=== PATIENT | male | born 1995 | race African-American/Black ===

== ENCOUNTER 2017-01-18 04:43 | Inpatient (IN) | payer MEDICAID, OTHER, SELFPAY ==
[~2017-01-18] VITALS: Ht 177.8 cm; Wt 67.1 kg
[2017-01-18 06:20] LABS: MEAN CORPUSCULAR HEMOGLOBIN 30.1 pg (27.0-33.0); MEAN CORPUSCULAR HGB CONC 34.3 g/dl (32.0-36.5); MEAN CORPUSCULAR VOLUME 87.6 fl (80.0-96.0); RED CELL DISTRIBUTION WIDTH 13.1 % (11.5-14.5); WHITE BLOOD COUNT 7.8 K/mm3 (4.0-10.0)
[2017-01-18 06:31] LABS: METHADONE URINE NEGATIVE (NEGATIVE)
[2017-01-18 06:43] LABS: ALBUMIN 3.6 GM/DL (3.2-5.2); ALKALINE PHOSPHATASE 71 U/L (45-117); ALT/SGPT 26 U/L (12-78); ANION GAP 6 MEQ/L (8-16); AST/SGOT 25 U/L (15-37); BILIRUBIN,DIRECT 0.2 MG/DL (0.0-0.2); BILIRUBIN,TOTAL 0.6 MG/DL (0.2-1.0); BLOOD UREA NITROGEN 11 MG/DL (7-18); CALCIUM LEVEL 8.6 MG/DL (8.5-10.1); CARBON DIOXIDE LEVEL 33 MEQ/L (21-32); CHLORIDE LEVEL 101 MEQ/L (98-107); CREATININE FOR GFR 1.21 MG/DL (0.70-1.30); GLOMERULAR FILTRATION RATE > 60.0 (>60); GLUCOSE, FASTING 134 MG/DL (70-105); POTASSIUM SERUM 3.8 MEQ/L (3.5-5.1); SODIUM LEVEL 140 MEQ/L (136-145); TOTAL PROTEIN 6.6 GM/DL (6.4-8.2)
[2017-01-18 11:50] VITALS: BP 124/80
[2017-01-18] MEDS: hydrOXYzine 50 MG TAB PO SCH ×2 (12:00→17:13)
[2017-01-18] MEDS: NICOTINE 21MG/24HR 1 EA TRANSDERMAL TD SCH (13:33)
[2017-01-18] MEDS ORDERED: MAALOX 30 ML SUSP *UDC PO PRN (14:30)
[2017-01-18] MEDS ORDERED: MOM 30ML SUSPENSION UDC PO PRN (14:30)
[2017-01-18] MEDS ORDERED: IBUPROFEN 400 MG TAB PO PRN (14:30)
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
[2017-01-18 18:00] VITALS: BP 107/55
[2017-01-18] MEDS: traZODone 50 MG TAB PO PRN (20:55)
[2017-01-19] MEDS: hydrOXYzine 50 MG TAB PO SCH ×5 (06:00→23:06)
[2017-01-19 06:47] VITALS: BP 142/55
[2017-01-19] MEDS: NICOTINE 21MG/24HR 1 EA TRANSDERMAL TD SCH (07:59)
[2017-01-19] MEDS: DULoxetine 30 MG CAP (CYMBALTA) PO SCH (09:00)
--- NOTE | 2017-01-19 09:46 | HPEPDOC ---
Medical History and Physical Date of Admission Jan 18, 2017 at 10:20 History and Physical PCP: None ATTENDING: Dr. Kevyn Jeffries HPI: 21yoM admitted to [facility] for Unspecified depressive disorder, being medically examined today. No acute medical complaints today. Denies any fevers, chills, weakness, fatigue, GUILLEN, CP, SOB, cough, palpitations, abdominal pain, N/V /D or changes in bowel or bladder habits. PMHx: depression Scoliosis Self-mutilation PSHX: Rt elbow abscess SOCHX: Resides in: [place], from [place] Marital Status: single Kids: none Employment: unemployed Tobacco use: 1ppd ETOH: 4 beers QOD. Illicit Drugs: Marijuana daily. Crack cocaine, heroin, methamphetamine, ice, cocaine. IV Drug Use: Denies Tattoos done unprofessionally: 3 FAMHX: Mother: Alive, well Father: Alive, well Siblings: 2 brothers, 4 sisters Alive, well Children: None Unexpected deaths due to medical reasons: None. ROS: As noted in HPI, otherwise 11pt ROS of systems reviewed and unremarkable. PE: GEN: 21yoM, appears stated age. Well-nourished, well developed. No acute distress. Alert and oriented x 3. Pleasant, interactive. HEENT: Normocephalic, atraumatic. Pupils are equal, round, and reactive to light. Extraocular movements are intact. No nystagmus appreciated. Sclera are nonicteric. Conjunctiva without injection. Nose midline. Nasal turbinates without bogginess. EACs both patent BL. TMs both visualized and johnson with good cone of light, no bulging or erythema. No facial asymmetry. Moist mucous membranes. Dentition fair. Pharynx pink and moist, no cobblestoning. Neck supple , trachea midline. No lymphadenopathy or thyromegaly appreciated. CHEST: Regular rate and rhythm, +S1, +S2 LUNGS: Clear to auscultation bilaterally. No wheezes, rales, or rhonchi. Breathing appears symmetric and easy. Patient is speaking in full sentences. No accessory muscle use. ABD: Round, soft, non-tender, non-distended. +Bowel sounds throughout. No rebound or guarding. No costovertebral angle tenderness. EXT: Pulses 2+ bilaterally dorsalis pedis and radial. No lower extremity edema appreciated. SKIN: [place], dry, warm. Capillary refill <2sec. No rashes. Healed cuts are noted at the left forearm NEURO: Alert and oriented x 3. Cranial nerves III-XII are intact. No focal deficits appreciated. EKG: Pending. A&P: 21yoM admitted to [facility] for Unspecified depressive disorder 1. Psych. Plan per Psychiatry. Obtain baseline EKG to assure the safety of psychiatric medications as they can prolong the QT interval. 2. Nicotine dependence. Patch available. 3. Tattoos done unprofessionally. Patient agrees to HIV and hepatitis screening. 4. Follow up. No Primary Care Provider. Will attempt to establish PCP on discharge. 5. H/O Substance use. Per psychiatry. 6. Staff member Ed present throughout exam. Vital Signs Vital Signs Date Time Temp Pulse Resp B/P Pulse Ox O2 Delivery O2 Flow Rate FiO2 01/19/17 06:47 97.7 49 16 142/55 01/18/17 11:50 98 Room Air Laboratory Data Labs 24H Item Value Date Time White Blood Count 7.8 K/mm3 01/18/17 0603 Red Blood Count 4.73 M/mm3 01/18/17 0603 Hemoglobin 14.2 g/dl 01/18/17 0603 Hematocrit 41.5 % L 01/18/17 0603 Mean Corpuscular Volume 87.6 fl 01/18/17 0603 Mean Corpuscular Hemoglobin 30.1 pg 01/18/17 0603 Mean Corpuscular Hemoglobin Concent 34.3 g/dl 01/18/17 0603 Red Cell Distribution Width 13.1 % 01/18/17 06 Platelet Count 160 k/mm3 01/18/17 0603 Sodium Level 140 MEQ/L 01/18/17 0603 Potassium Level 3.8 MEQ/L 01/18/17 0603 Chloride Level 101 MEQ/L 01/18/17 0603 Carbon Dioxide Level 33 MEQ/L H 01/18/17 0603 Anion Gap 6 MEQ/L L 01/18/17 0603 Blood Urea Nitrogen 11 MG/DL 01/18/17 0603 Creatinine 1.21 MG/DL 01/18/17 0603 Glomerular Filtration Rate > 60.0 01/18/17 0603 Fasting Glucose 134 MG/DL H 01/18/17 0603 Calcium Level 8.6 MG/DL 01/18/17 0603 Total Bilirubin 0.6 MG/DL 01/18/17602 Direct Bilirubin 0.2 MG/DL 01/18/1703 Aspartate Amino Transf (AST/SGOT) 25 U/L 01/18/17 0603 Alanine Aminotransferase (ALT/SGPT) 26 U/L 01/18/17 0603 Alkaline Phosphatase 71 U/L 01/18/1703 Total Protein 6.6 GM/DL 01/18/1703 Albumin 3.6 GM/DL 01/18/17602 Albumin/Globulin Ratio 1.20 01/18/17602 Thyroid Stimulating Hormone (TSH) 0.527 uIU/ML 01/18/17 06 Salicylates Level 4.1 MG/DL L 01/18/1703 Urine Opiates Screen NEGATIVE 01/18/1704 Urine Methadone Screen NEGATIVE 01/18/17 0604 Acetaminophen Level < 2.0 UG/ML L 01/18/1703 Urine Barbiturates Screen NEGATIVE 01/18/1704 Urine Phencyclidine Screen NEGATIVE 01/18/17603 Urine Amphetamines Screen NEGATIVE 01/18/1704 Urine Benzodiazepines Screen NEGATIVE 01/18/1704 Urine Cocaine Metabolite Screen NEGATIVE 01/18/17603 Urine Cannabinoids Screen POSITIVE H 01/18/1704 Ethyl Alcohol Level 0.003 % 01/18/17602 Allergies Coded Allergies: No Known Allergies (Unverified , 01/18/17) Zeina Bernal Jan 19, 2017 09:46
--- NOTE | 2017-01-19 10:57 | IPNPDOC ---
[facility] Progress Note Progress Note DATE OF SERVICE: 01/19/17 HISTORY: Day 2 of admission. Pt is requesting discharge. VITAL SIGNS: See below. NEW TEST RESULTS: . CURRENT MEDICATIONS: See below. MENTAL STATUS EXAMINATION: Patient is a 21-year old male, who is dx with Speech: Is soft, mumbled, have to ask him to repeat himself frequently. Language skills are poor. Does not communicate well. Thought processes including: linear, logical Thought content: "I want to get out of here". Abstract reasoning, and computation: good. Description of associations: good. Description of abnormal or psychotic thoughts: Denies SI and psychotic symptoms. States "the only reason I am here is other people were worried about me. I should not have said anything". Judgment: poor Insight: limited, fair. Orientation: Oriented to person, place, time and situation. Recent and remote memory: intact Attention span and concentration: adequate Fund of knowledge: adequate Mood: depressed. Affect: congruent. DIAGNOSES: 1. Major depressive disorder, moderate, recurrent without psychotic features. 2. Cannabis dependence 3. Alcohol dependence in remission ASSESSMENT:Pt slept during the night. He is eating at meal times. He attended programming this a.m. He returned to bed later in the day. His records from his admission to [facility] in October of 2014 were received and reviewed. He was prescribed Cymbalta at 30 mg then increased to 60 mg during that admission. We will restart that medication today. He agrees to this treatment. He used trazodone to sleep last night. MANAGEMENT PLAN: He agrees to participate in discharge planning and to remain on the unit for a few more days so we can get things arranged for him. He will require outpatient follow up for med mgt and therapy is recommended. He needs to stop his cannabis use. He is hoping to start a job at [employer] and was advised to call them and explain he is in the hospital and that he is still interested in the job. He agreed this is a good idea. TIME SPENT: 30 minutes. Vital Signs Vital Signs Date Time Temp Pulse Resp B/P Pulse Ox O2 Delivery O2 Flow Rate FiO2 01/19/17 06:47 97.7 49 16 142/55 01/18/17 11:50 98 Room Air Current Medications Current Medications Al Hydrox/Mg Hydrox/Simethicone (Mylanta) 30 ml Q4HP PRN PO HEARTBURN/ INDIGESTION; Start 01/18/17 at 14:30; Stop 02/17/17 at 14:29 Diphenhydramine HCl (Benadryl) 25 mg Q6HP PRN PO ANXIETY/AGITATION; Start 01/18 at 14:30; Stop 02/17/17 at 14:29 Duloxetine HCl (Cymbalta) 30 mg QAM PO Last administered on 01/19/17 09:00; Start 01/19/17 at 09:00; Stop 02/18/17 at 08:59 Haloperidol (Haldol) 5 mg Q6HP PRN PO ANXIETY/AGITATION; Start 01/18/17 at 14: 30; Stop 02/17/17 at 14:29 Home Med (Med Rec Complete!) ASDIRECTED XX ; Start 01/18/17 at 10:30; Stop at 10:32; Status DC Hydroxyzine HCl (Atarax) 50 mg Q6H PO Last administered on 01/19/17 06:00; Start 01/18/17 at 12:00; Stop 02/17/17 at 11:59 Ibuprofen (Advil) 400 mg Q6HP PRN PO PAIN; Start 01/18/17 at 14:30; Stop at 14:29 Lorazepam (Ativan) 1 mg Q6HP PRN PO ANXIETY/AGITATION; Start 01/18/17 at 14:30 ; Stop 01/25/17 at 14:29 Magnesium Hydroxide (Milk Of Magnesia) 30 ml DAILYPRN PRN PO CONSTIPATION; Start 01/18/17 at 14:30; Stop 02/17/17 at 14:29 Nicotine (Nicoderm Cq 21mg) 1 patch DAILY TD Last administered on 01/19/17 07: 59; Start 01/18/17 at 09:00; Stop 02/17/17 at 08:59 Trazodone HCl (Desyrel) 50 mg QHSP PRN PO INSOMNIA Last administered on 20:55; Start 01/18/17 at 14:30; Stop 02/17/17 at 14:29 Allergies Coded Allergies: No Known Allergies (Unverified , 01/18/17) Sandra Moralez Jan 19, 2017 10:56
--- NOTE | 2017-01-19 17:20 | ECGEPIP ---
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
[2017-01-19 18:00] VITALS: BP 105/50
[2017-01-19] MEDS: LORazepam 1 MG TAB PO PRN (23:08)
[2017-01-19] MEDS: traZODone 50 MG TAB PO PRN (23:17)
[2017-01-20 06:14] VITALS: BP 102/55
[2017-01-20] MEDS: hydrOXYzine 50 MG TAB PO SCH ×4 (06:15→23:59)
[2017-01-20] MEDS: DULoxetine 30 MG CAP (CYMBALTA) PO SCH (09:21)
[2017-01-20] MEDS: NICOTINE 21MG/24HR 1 EA TRANSDERMAL TD SCH (09:21)
--- NOTE | 2017-01-20 10:02 | IPNPDOC ---
[facility] Progress Note Progress Note DATE OF SERVICE: 01/20/17 HISTORY: HISTORY OF THE PRESENT ILLNESS: Patient is a 21-year-old male, who was brought to the ED for SI of jumping off a bridge. Pt has denied he that he wanted to jump off the bridge and has said he was at the mall at that time. He is from [place], where his mother resides. he has lived there and he also has lived in [facility], where his father lives. In [place] he has lived at the house of his ex grilfriend mother. His ex girl friend is . He was a the [facility] on october 2014 and he was transferred [facility] for psychiatric treatment. At that time he was admitted for SI. At that time he cut himself in the arm and he required stitches but he told the staff it had been an accident. Pt denies any past suicide attempts. TODAY he dnies SI or PLAN to kill himself. He says he is a little bit anxious but he feels better in regards to his depression. He has a substance abuse problem, and he states he has used marijuana on a regular basis and that he used crack cocaine and snorted heroine in the past.He used cannabis on the day before his admission. VITAL SIGNS: See below. NEW TEST RESULTS: None. CURRENT MEDICATIONS: See below. MENTAL STATUS EXAMINATION: Patient is a 21-year old male, who is sleepy but alert, cooperative with interview , with fair eye contact. Speech: Is normal Language skills are fair. Thought processes including: Structured, coherent.. Thought content: Negative for suicidal ideation, negative for homicidal ideation , negative for psychosis, but . Abstract reasoning, and computation: . Description of associations: No loosening of associations Description of abnormal or psychotic thoughts: Not present. Judgment: Poor. Insight: Improving. Orientation: Oriented 3. Recent and remote memory: Intact. Attention span and concentration: Fair. Language: Appropriate. Fund of knowledge: Good. Mood: I'm a little bit anxious. Affect: Blunted DIAGNOSES: 1. Major depressive disorder. 2. Substance abuse(marijuana). 3. . ASSESSMENT: Patient needs to be stabilized, is still depressed although less than when he was admitted. Will need to continue on medications and psychotherapy. MANAGEMENT PLAN: Continue hospitalization until further stabilization. TIME SPENT: 15 minutes. Vital Signs Vital Signs Date Time Temp Pulse Resp B/P Pulse Ox O2 Delivery O2 Flow Rate FiO2 01/20/17 06:14 97.8 60 16 102/55 01/18/17 11:50 98 Room Air Laboratory Data 24H Labs Laboratory Tests 2 01/19/17 10:43: HIV Antigen/Antibody Combo Qual NEGATIVE, Hepatitis A IgM Antibody NEGATIVE, Hepatitis B Core IgM Antibody NEGATIVE, Hepatitis B Surface Antigen NEGATIVE, Hepatitis C Antibody Index 0.1 Current Medications Current Medications Al Hydrox/Mg Hydrox/Simethicone (Mylanta) 30 ml Q4HP PRN PO HEARTBURN/ INDIGESTION; Start 01/18/17 at 14:30; Stop 02/17/17 at 14:29 Diphenhydramine HCl (Benadryl) 25 mg Q6HP PRN PO ANXIETY/AGITATION; Start 01/18 at 14:30; Stop 02/17/17 at 14:29 Duloxetine HCl (Cymbalta) 30 mg QAM PO Last administered on 01/20/17 09:21; Start 01/19/17 at 09:00; Stop 02/18/17 at 08:59 Haloperidol (Haldol) 5 mg Q6HP PRN PO ANXIETY/AGITATION; Start 01/18/17 at 14: 30; Stop 02/17/17 at 14:29 Home Med (Med Rec Complete!) ASDIRECTED XX ; Start 01/18/17 at 10:30; Stop at 10:32; Status DC Hydroxyzine HCl (Atarax) 50 mg Q6H PO Last administered on 01/20/17 06:15; Start 01/18/17 at 12:00; Stop 02/17/17 at 11:59 Ibuprofen (Advil) 400 mg Q6HP PRN PO PAIN; Start 01/18/17 at 14:30; Stop at 14:29 Lorazepam (Ativan) 1 mg Q6HP PRN PO ANXIETY/AGITATION Last administered on 01/19 23:08; Start 01/18/17 at 14:30; Stop 01/25/17 at 14:29 Magnesium Hydroxide (Milk Of Magnesia) 30 ml DAILYPRN PRN PO CONSTIPATION; Start 01/18/17 at 14:30; Stop 02/17/17 at 14:29 Nicotine (Nicoderm Cq 21mg) 1 patch DAILY TD Last administered on 01/20/17 09: 21; Start 01/18/17 at 09:00; Stop 02/17/17 at 08:59 Trazodone HCl (Desyrel) 50 mg QHSP PRN PO INSOMNIA Last administered on 23:17; Start 01/18/17 at 14:30; Stop 02/17/17 at 14:29 Allergies Coded Allergies: No Known Allergies (Unverified , 01/18/17) NAVI COHEN MD Jan 20, 2017 10:02
[2017-01-20 18:00] VITALS: BP 118/65
[2017-01-20] MEDS: LORazepam 1 MG TAB PO PRN (20:06)
[2017-01-20] MEDS: diphenhydrAMINE 25 MG CAP PO PRN (20:06)
[2017-01-20] MEDS: HALOPERIDOL 5 MG TAB PO PRN (21:00)
[2017-01-20] MEDS: traZODone 50 MG TAB PO PRN (21:00)
[2017-01-21] MEDS: hydrOXYzine 50 MG TAB PO SCH ×3 (06:03→17:27)
[2017-01-21 06:21] VITALS: BP 110/59
[2017-01-21 06:22] VITALS: BP 110/59
[2017-01-21] MEDS: DULoxetine 30 MG CAP (CYMBALTA) PO SCH (08:26)
[2017-01-21] MEDS: NICOTINE 21MG/24HR 1 EA TRANSDERMAL TD SCH (08:27)
--- NOTE | 2017-01-21 11:55 | IPNPDOC ---
[facility] Progress Note Progress Note DATE OF SERVICE: 01/21/17 HISTORY: HISTORY OF THE PRESENT ILLNESS: Patient is a 21-year-old male, who was brought to the ED for SI of jumping off a bridge. Pt has denied he that he wanted to jump off the bridge and has said he was at the mall at that time. He is from [place], where his mother resides. he has lived there and he also has lived in [facility], where his father lives. In [place] he has lived at the house of his ex grilfriend mother. His ex girl friend is . He was a the [facility] on october 2014 and [facility] for psychiatric treatment. At that time he was admitted for SI. At that time he cut himself in the arm and he required stitches but he told the staff it had been an accident. VITAL SIGNS: See below. NEW TEST RESULTS: None. CURRENT MEDICATIONS: See below. MENTAL STATUS EXAMINATION: Patient is a 21-year old male, who is alert, cooperative, calmed, with good eye contact and good rapport. Speech: Is normal, soft spoken. Language skills are normal. Thought processes including: linear, coherent. Thought content: Negative for homicidal thoughts. Denies SI and hallucinations, denies delusional thoughts. Abstract reasoning, and computation: fair. Description of associations: No loosening of associations. Description of abnormal or psychotic thoughts: Denies, but he seems internally preoccupied. Judgment: Poor. Insight: Poor. Orientation: Oriented to person and place but not date and time. Recent and remote memory: Fair. Attention span and concentration: Fair. Language: normal. Fund of knowledge: fair. Mood: "I feel fine, m'am. I'm not suicidal" Affect: Constricted DIAGNOSES: 1. Major Depressive disorder, recurrent, moderate 2. Substance abuse (marijuana) ASSESSMENT:pt. seems to be more alert than yesterday. He is less anxious and more cooperative MANAGEMENT PLAN: Continue with current treatment plan. TIME SPENT: 15 minutes. Vital Signs Vital Signs Date Time Temp Pulse Resp B/P Pulse Ox O2 Delivery O2 Flow Rate FiO2 01/21/17 06:22 98.1 55 18 110/59 01/18/17 11:50 98 Room Air Current Medications Current Medications Al Hydrox/Mg Hydrox/Simethicone (Mylanta) 30 ml Q4HP PRN PO HEARTBURN/ INDIGESTION; Start 01/18/17 at 14:30; Stop 02/17/17 at 14:29 Diphenhydramine HCl (Benadryl) 25 mg Q6HP PRN PO ANXIETY/AGITATION Last administered on 01/20/17 20:06; Start 01/18/17 at 14:30; Stop 02/17/17 at 14:29 Duloxetine HCl (Cymbalta) 30 mg QAM PO Last administered on 01/21/17 08:26; Start 01/19/17 at 09:00; Stop 02/18/17 at 08:59 Haloperidol (Haldol) 5 mg Q6HP PRN PO ANXIETY/AGITATION Last administered on 21:00; Start 01/18/17 at 14:30; Stop 02/17/17 at 14:29 Home Med (Med Rec Complete!) ASDIRECTED XX ; Start 01/18/17 at 10:30; Stop at 10:32; Status DC Hydroxyzine HCl (Atarax) 50 mg Q6H PO Last administered on 01/21/17 11:15; Start 01/18/17 at 12:00; Stop 02/17/17 at 11:59 Ibuprofen (Advil) 400 mg Q6HP PRN PO PAIN; Start 01/18/17 at 14:30; Stop at 14:29 Lorazepam (Ativan) 1 mg Q6HP PRN PO ANXIETY/AGITATION Last administered on 01/20 20:06; Start 01/18/17 at 14:30; Stop 01/25/17 at 14:29 Magnesium Hydroxide (Milk Of Magnesia) 30 ml DAILYPRN PRN PO CONSTIPATION; Start 01/18/17 at 14:30; Stop 02/17/17 at 14:29 Nicotine (Nicoderm Cq 21mg) 1 patch DAILY TD Last administered on 01/21/17 08: 27; Start 01/18/17 at 09:00; Stop 02/17/17 at 08:59 Trazodone HCl (Desyrel) 50 mg QHSP PRN PO INSOMNIA Last administered on 21:00; Start 01/18/17 at 14:30; Stop 02/17/17 at 14:29 Allergies Coded Allergies: No Known Allergies (Unverified , 01/18/17) NAVI COHEN MD Jan 21, 2017 11:55
[2017-01-21] MEDS: diphenhydrAMINE 25 MG CAP PO PRN (12:48)
[2017-01-21 18:00] VITALS: BP 108/60
[2017-01-21] MEDS: HALOPERIDOL 5 MG TAB PO PRN (20:11)
[2017-01-21] MEDS: traZODone 50 MG TAB PO PRN (21:56)
[2017-01-22] MEDS: hydrOXYzine 50 MG TAB PO SCH ×4 (06:05→17:36)
[2017-01-22 06:38] VITALS: BP 105/58
[2017-01-22] MEDS: DULoxetine 30 MG CAP (CYMBALTA) PO SCH ×2 (09:19→21:48)
[2017-01-22] MEDS: NICOTINE 21MG/24HR 1 EA TRANSDERMAL TD SCH (09:20)
[2017-01-22] MEDS: HALOPERIDOL 5 MG TAB PO PRN (10:19)
--- NOTE | 2017-01-22 16:37 | IPNPDOC ---
[facility] Progress Note Progress Note DATE OF SERVICE: 01/22/17 HISTORY: Day 5 of admission. Pt did well over the weekend. Social with peers. Enjoyed TV and conversation. Requesting discharge. Feels very uncomfortable here. VITAL SIGNS: See below. NEW TEST RESULTS: na CURRENT MEDICATIONS: See below. MENTAL STATUS EXAMINATION: Patient is a 21 year old male, who is being tx for depression. He is wearing hospital attire and his hair is not combed. He has been using lots of prn anxiety meds. Eye contact is good. Speech: Is spontaneous Language skills are good. Thought processes : logical and goal directed. Thought content: appropriate. Abstract reasoning, and computation: fair. Description of associations: good. Description of abnormal or psychotic thoughts: denies aud/visual disturbance, denies thoughts of harming self or others. Denies suicidal thoughts. Judgment: fair Insight: fair. Orientation: oriented x 3 Recent and remote memory: intact Attention span and concentration: adequate Fund of knowledge: good Mood: euthymic. Affect: congruent. DIAGNOSES: 1. MDD, 2. Cannabis dependence 3. ASSESSMENT: pt is much more engaged today. Affect is much more broad than last week. He wants to leave to find out about his job at [employer]. He wants to return to his ex-GF mother's house. He's jonesing for a cigarette and says the 21 mg patch is not help to him. Pt has been taking cymbalta 30 my without side effects. He says he will stay on the medication after discharge form the hospital. He is agreeable to following up with [facility] outpatient services. Pt reports feeling restless and uncomfortable. He rates depression as 3/10 and anxiety as 8/10. He took Haldol 5 mg without any improvement in mood. He reports not sleeping well last night but other nights he has slept very well on the unit. He is eating at every meal. Pt reports frequent "strange dreams". Last night he dreamt he and his younger brother were both the Incredible Hulk. He kept dreaming the same thing over and over. It may be the trazodone. He also reports sweaty palms. He feels like he could have a panic attack. He is using most of hs prn meds with little effect. Pt encouraged to only use the vistaril for anxiety. It was explained the haldol and the ativan are mainly for agitation. Given his substance abuse history it is not a good idea that he get used to lorazepam on the unit. I will increase the cymbalt and see if this helps his anxiety. MANAGEMENT PLAN: Discharge likely tomorrow. He will coordinate with nursing. He states he can walk to where he will be staying. he says his pharmacy is [facility] on [address] in [facility]. TIME SPENT: 25 minutes. Vital Signs Vital Signs Date Time Temp Pulse Resp B/P Pulse Ox O2 Delivery O2 Flow Rate FiO2 01/22/17 06:38 98.0 56 18 105/58 01/18/17 11:50 98 Room Air Current Medications Current Medications Al Hydrox/Mg Hydrox/Simethicone (Mylanta) 30 ml Q4HP PRN PO HEARTBURN/ INDIGESTION; Start 01/18/17 at 14:30; Stop 02/17/17 at 14:29 Diphenhydramine HCl (Benadryl) 25 mg Q6HP PRN PO ANXIETY/AGITATION Last administered on 01/21/17 12:48; Start 01/18/17 at 14:30; Stop 02/17/17 at 14:29 Duloxetine HCl (Cymbalta) 30 mg QAM PO Last administered on 01/22/17 09:19; Start 01/19/17 at 09:00; Stop 02/18/17 at 08:59 Haloperidol (Haldol) 5 mg Q6HP PRN PO ANXIETY/AGITATION Last administered on 10:19; Start 01/18/17 at 14:30; Stop 02/17/17 at 14:29 Home Med (Med Rec Complete!) ASDIRECTED XX ; Start 01/18/17 at 10:30; Stop at 10:32; Status DC Hydroxyzine HCl (Atarax) 50 mg Q6H PO Last administered on 01/22/17 12:38; Start 01/18/17 at 12:00; Stop 02/17/17 at 11:59 Ibuprofen (Advil) 400 mg Q6HP PRN PO PAIN; Start 01/18/17 at 14:30; Stop at 14:29 Lorazepam (Ativan) 1 mg Q6HP PRN PO ANXIETY/AGITATION Last administered on 01/20 20:06; Start 01/18/17 at 14:30; Stop 01/25/17 at 14:29 Magnesium Hydroxide (Milk Of Magnesia) 30 ml DAILYPRN PRN PO CONSTIPATION; Start 01/18/17 at 14:30; Stop 02/17/17 at 14:29 Nicotine (Nicoderm Cq 21mg) 1 patch DAILY TD Last administered on 01/22/17 09: 20; Start 01/18/17 at 09:00; Stop 02/17/17 at 08:59 Trazodone HCl (Desyrel) 50 mg QHSP PRN PO INSOMNIA Last administered on 21:56; Start 01/18/17 at 14:30; Stop 02/17/17 at 14:29 Allergies Coded Allergies: No Known Allergies (Unverified , 01/18/17) Sandra Moralez Jan 22, 2017 16:37
[2017-01-22 18:00] VITALS: BP 136/60
[2017-01-22] MEDS: traZODone 50 MG TAB PO PRN (21:48)
[2017-01-23] MEDS: hydrOXYzine 50 MG TAB PO SCH ×3 (05:55→12:01)
[2017-01-23 06:25] VITALS: BP 120/59
[2017-01-23] MEDS: NICOTINE 21MG/24HR 1 EA TRANSDERMAL TD SCH (08:22)
[2017-01-23] MEDS: DULoxetine 30 MG CAP (CYMBALTA) PO SCH (08:22)
[2017-01-23] MEDS ORDERED: TRAZ50TA4 PO (09:37)
[2017-01-23] MEDS ORDERED: DULO30CA PO (09:38)
[2017-01-23] MEDS ORDERED: VIST50CA PO (09:47)
--- NOTE | 2017-01-23 10:03 | DS.PDOC ---
[facility] Discharge Summary Discharge Summary DATE OF ADMISSION: Jan 18, 2017 at 10:20 DATE OF DISCHARGE: Jan 23, 2017 DISCHARGE DIAGNOSES: 1. Substance induced mood disorder 2. r/o Major depressive disorder, severe, recurrent without psychotic features 3. Cannabis dependence 4. Nicotine dependence REASON FOR ADMISSION: Pt was brought in by police after he made statements about jumping off a bridge in a suicide attempt. CONSULTANTS INVOLVED:lab, medicine, psychiatry TREATMENT AND PROGRESS ON THE UNIT : Records from [facility] indicate pt was successfully started on Cymbalta 2 years ago. He was agreeable to restarting this medication. He stopped the medication upon discharge from that facility. Pt was to follow up with Mental Health services and failed to do so. He states he will follow up following discharge today. Pt will be referred to the [facility] for medication mgt and therapy. He declines a referral for substances abuse stating he does not abuse cannabis. Pt was observed in bed during much of his stay here. He was very seclusive and kept to himself the first 48 hours. Over the weekend he ventured out of his room to watch sports on TV and engaged with peers. He adjusted well and got along well with everyone. No behavior disturbances. Suicidal thinking resolved as pt denied being suicidal to begin with. He felt the people he was with got the wrong impression of his state of mind. Pt is a former member of the [employer] having been stationed at 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 [facility] after his first admission to this facility in 2014. Pt did complete paperwork which was faxed to the [facility] to [facility]. We have not had any response from the [facility]. Pt states it is his intention to follow up with them after discharge. Pt is also pursing employment with [employer]. Pt intends to reside at the home of the mother of his former GF. Residence verified prior to discharge. HOSPITAL COURSE: Pt has tolerated the initiation of Cymbalta and an increase from 30 mg daily to 30 mg bid. It was explained he may have this dose increased further as an outpatient. He c/o anxiety, sweating, intense dreams while on the unit. He is wearing his nicoderm patch at night which may affect his dreams. He was informed he can remove the patch at bedtime but he states he is rather enjoying the dreams so he elects not to remove it. Pt may also experience changes in dream quality due to trazodone. This can be monitored outpatient especially if it is affecting his daytime functioning. DISCHARGE ASSESSMENT: The team met with Seth prior to discharge. He is alert and oriented. His thinking is logical and goal directed. He is future oriented. He is happy to be leaving and is aware of his responsibility to follow up with the clinic for outpatient services. He denies any thoughts, intent or plan to harm himself or others. He agrees to take the Cymbalta bid as directed and not to abruptly stop the medication. He is aware of side effects of the Cymbalta and that depressed mood can return suddenly if he stops taking the medication. Pt informed and understands that cannabis may interfere with the effectiveness of Cymbalta, atarax and trazodone. He may use atarax 50 mg prn q 8 hours for symptoms of anxiety. He is not able to identify triggers for his anxiety. He may use trazodone 50 mg as needed for sleep. He will receive a 7 day supply of medications with 4 refills. Pt was advised if he accepted for mental health treatment by the [facility] he can transfer his outpatient mental health services to them. MENTAL STATUS EXAMINATION ON DISCHARGE: Patient is a 21-year old male, who is dx with substance induced mood disorder, rule out MDD. He is dressed in hospital attire and his hair is uncombed. Speech is spontaneous Language skills are adequate Thought processes: logical, goal directed Thought content: discharge, working, follow up care Abstract reasoning, and computation: good. Description of associations: good. Description of abnormal or psychotic thoughts: no psychotic symptoms illicited, he denies any thoughts of harm to self or others including suicide and homicide. Judgment: good. Insight: fair Orientation to person, place, time and situation. Recent and remote memory: intact Attention span and concentration: adequate Fund of knowledge: adequate Mood: euthymic Affect: congruent MEDICATIONS ON DISCHARGE: - Cymbalta for mood/anxiety - trazodone for insomnia. - atarax for anxiety/panic. PLAN/FOLLOWUP ARRANGEMENTS: [facility] The amount of time spent in the coordination of care for this patient was approximately 45 minutes. Vital Signs/I&Os Vital Signs Date Time Temp Pulse Resp B/P Pulse Ox O2 Delivery O2 Flow Rate FiO2 01/23/17 06:25 98.5 62 14 120/59 01/18/17 11:50 98 Room Air Medications Scheduled Duloxetine Hcl (Cymbalta) 30 Mg Cap #14 30 MG PO BID MOOD Scheduled PRN Hydroxyzine Pamoate (Vistaril) 50 Mg Cap #21 50 MG PO q 8 hrs prn PRN PRN ANXIETY Trazodone HCl (Trazodone HCl) 50 Mg Tab #7 50 MG PO QHSP PRN PRN INSOMNIA Allergies Coded Allergies: No Known Allergies (Unverified , 01/18/17) Sandra Moralez Jan 23, 2017 10:03
[2017-01-24] MEDS ORDERED: DULO1CAP2 PO (14:23)
[2017-01-24] MEDS ORDERED: SERT50TA PO (16:07)
== END 2017-01-23 13:20 | disposition home or self-care (01) | DRG 751 ==
LOC: M ED 05:35 → M ED INP 10:20 → M PSY 11:32
PROVIDERS: ADMIT Psychiatry & Neurology Psychiatry; ATTEND Psychiatry & Neurology Child & Adolescent Psychiatry
DX: F33.2 Major depressive disorder, recurrent severe without psychotic features (principal); R45.851 Suicidal ideations; F19.94 Other psychoactive substance use, unspecified with psychoactive substance-induced mood disorder; F12.20 Cannabis dependence, uncomplicated; F17.210 Nicotine dependence, cigarettes, uncomplicated; Z79.899 Other long term (current) drug therapy; Z91.5 Personal history of self-harm

== ENCOUNTER → 2017-01-28 | Emergency (ER) | payer MEDICAID ==
[~2017-01-28] VITALS: Ht 177.8 cm; Wt 67.6 kg
[~2017-01-28] MED LIST: DULO1CAP2 PO; DULO30CA PO; HYDRO50TAB PO; SERT50TA PO; TRAZ50TA4 PO; VIST50CA PO
[2017-01-28 13:53] VITALS: BP 136/82
== END | disposition left against medical advice (07) ==
LOC: M ED 16:04
DX: F41.9 Anxiety disorder, unspecified (principal); F33.9 Major depressive disorder, recurrent, unspecified; Z79.899 Other long term (current) drug therapy

== ENCOUNTER 2017-01-30 16:49 | Inpatient (IN) | payer MEDICAID, OTHER ==
[~2017-01-30] VITALS: Ht 177.8 cm; Wt 66.4 kg
[~2017-01-30 16:49] MED LIST changes: -HYDRO50TAB PO
[2017-01-30] MEDS ORDERED: CHARCOAL ACTIVATED LIQUID 25 GM/120 ML BTL PO ONE (17:00)
[2017-01-30 17:47] LABS: BASO % 0.4 % (0.0-1.0); EOS % 0.5 % (0.0-3.0); LARGE UNSTAINED CELL # 0.2 K/mm3 (0.0-0.4); LARGE UNSTAINED CELL % 2.4 % (0.0-4.0); LYMPH % 32.1 % (24.0-44.0); MEAN CORPUSCULAR HEMOGLOBIN 30.5 pg (27.0-33.0); MEAN CORPUSCULAR VOLUME 89.6 fl (80.0-96.0); MONO # 0.4 K/mm3 (0.0-0.8); MONO % 5.8 % (0.0-5.0); NEUTROPHILS # 3.7 K/mm3 (1.8-7.7); NEUTROPHILS % 58.8 % (36.0-66.0); PLATELET COUNT, AUTOMATED 159 k/mm3 (150-450); WHITE BLOOD COUNT 6.2 K/mm3 (4.0-10.0)
[2017-01-30 18:01] LABS: METHADONE URINE NEGATIVE (NEGATIVE)
[2017-01-30 18:02] LABS: ALBUMIN 4.1 GM/DL (3.2-5.2); ALBUMIN/GLOBULIN RATIO 1.32 (1.00-1.93); ALKALINE PHOSPHATASE 89 U/L (45-117); ALT/SGPT 22 U/L (12-78); ANION GAP 8 MEQ/L (8-16); AST/SGOT 21 U/L (15-37); BILIRUBIN,DIRECT 0.1 MG/DL (0.0-0.2); BILIRUBIN,TOTAL 0.3 MG/DL (0.2-1.0); BLOOD UREA NITROGEN 8 MG/DL (7-18); CARBON DIOXIDE LEVEL 27 MEQ/L (21-32); CHLORIDE LEVEL 107 MEQ/L (98-107); GLOMERULAR FILTRATION RATE > 60.0 (>60); GLUCOSE, FASTING 100 MG/DL (70-105); POTASSIUM SERUM 3.8 MEQ/L (3.5-5.1); SODIUM LEVEL 142 MEQ/L (136-145); TOTAL PROTEIN 7.2 GM/DL (6.4-8.2)
[2017-01-30] MEDS ORDERED: NS 1,000 ML IV ONE (21:15)
[2017-01-31] MEDS ORDERED: SERT50TA PO (01:13)
[2017-01-31] MEDS ORDERED: TRAZ50TA4 PO (01:13)
[2017-01-31] MEDS ORDERED: VIST50CA PO (01:13)
[2017-01-31 01:45] VITALS: BP 106/57
[2017-01-31] MEDS ORDERED: MOM 30ML SUSPENSION UDC PO PRN (02:15)
[2017-01-31] MEDS ORDERED: ACETAMINOPHEN TAB 650MG DOSE (2X325MG) PO PRN (02:15)
[2017-01-31] MEDS ORDERED: MAALOX 30 ML SUSP *UDC PO PRN (02:15)
--- NOTE | 2017-01-31 08:17 | ECGEPIP ---
Stationary ECG Study [facility] - ED Test Date: 2017-01-30 Pat Name: RUFINO GUO Department: Room: - Gender: M [employer]: derek : 1995 Requested By: Parvez Goodman Order Number: [id number] Reading MD: Kandace Ladd Measurements Intervals [place] Rate: 78 P: 76 UT: 148 QRS: 81 QRSD: 87 T: 62 QT: 359 QTc: 410 Interpretive Statements SINUS RHYTHM WITH SINUS ARRHYTHMIA Electronically Signed On 01-31-2017 8:17:08 EDT by Kandace Ladd
[2017-01-31] MEDS: SERTRALINE HCL 50 MG TAB PO SCH (08:41)
[2017-01-31 12:00] VITALS: BP 112/62
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
[2017-01-31 18:00] VITALS: BP 118/77
[2017-01-31] MEDS: NICOTINE POLACRILEX 2 MG GUM PO PRN (21:33)
[2017-01-31 21:35] VITALS: BP 142/76
[2017-01-31] MEDS: hydrOXYzine 50 MG TAB PO PRN (23:01)
[2017-02-01 06:40] VITALS: BP 105/54
[2017-02-01] MEDS: SERTRALINE HCL 50 MG TAB PO SCH (08:44)
[2017-02-01] MEDS: NICOTINE POLACRILEX 2 MG GUM PO PRN ×2 (08:53→11:42)
--- NOTE | 2017-02-01 09:05 | HPE ---
DATE OF ADMISSION: 01/31/2017 DATE OF SERVICE: 01/31/2017 Please refer to psychiatric history and evaluation for further details on this admission. This examination and history is intended for medical issues, which may need treatment, followup, or consult on this 21-year-old male. SOCIAL HISTORY: He is originally from [place]. He currently resides in [place]. He is single. He smokes one pack of cigarettes per day. He drinks approximately four beers every other day. He smokes marijuana daily. He states he has used crack cocaine, heroin, methamphetamine, and ice cocaine in the past. ALLERGIES: No known allergies. PRIMARY CARE PROVIDER: None currently. PAST MEDICAL HISTORY: 1. Depression. 2. Scoliosis. 3. Self-mutilation. PAST SURGICAL HISTORY: Right elbow abscess. LABORATORY STUDIES: White count 6.2, hemoglobin 15.7, hematocrit 46.2, platelets 159. Electrolytes were normal. BUN was 8, creatinine 1.0. Initial CPK was 939, recheck was 725. Will recheck again in the a.m. No complaints of any myalgias. HOME MEDICATIONS: - Atarax 50 mg by mouth every 8 hours as needed for anxiety - sertraline 50 mg by mouth daily - trazodone 50 mg by mouth nightly as needed for sleep Eleven systems review was done and was unremarkable. The patient's only request was to be tested for syphilis, chlamydia, and gonorrhea, which we will order. Previous admission 01/23/2017, he was tested for HIV and hepatitis screening, which were both negative. The patient is aware. PHYSICAL EXAMINATION: An 21-year-old thin cooperative male in no acute distress. Height 70 inches, weight 66.9 kg, body mass index (BMI) 22.2, blood pressure 118/77, pulse 77, respirations 18, temperature 98.2. The patient is alert and oriented times three. Pupils are equal and react to light. Extraocular movements intact. Cornea and sclerae clear. Conjunctivae normal. No facial asymmetry. Pharynx, tongue, gums pink and moist. Tongue is midline. NECK: Is supple without lymphadenopathy. No thyromegaly. No goiter. Carotids 2+ without bruit. CHEST: Clear to auscultation without wheeze or retraction. HEART: Is regular. ABDOMEN: Benign. Bowel sounds positive. GENITOURINARY ()/RECTAL: Not done. EXTREMITIES: Show equal strength, full range of motion. No cyanosis, clubbing, or edema. Gait steady. Cranial nerves III-XII grossly intact. Peripheral pulses equal and palpable bilaterally. SKIN: Is warm and dry. IMPRESSION AND PLAN: 1. Psychiatric plan per psychiatry. 2. History of self-mutilation. No fresh cuts noted. Requests testing for syphilis, gonorrhea, and chlamydia, which has been ordered. No other acute medical issues.
[2017-02-01] MEDS: hydrOXYzine 50 MG TAB PO PRN (11:42)
--- NOTE | 2017-02-01 12:53 | IPNPDOC ---
[facility] Progress Note Progress Note DATE OF SERVICE: 02/01/17 HISTORY: Day 2 of admission VITAL SIGNS: See below. NEW TEST RESULTS: STD testing pending CURRENT MEDICATIONS: See below. MENTAL STATUS EXAMINATION: Patient is a 21-year old male, who is dressed in hospital attire, wearing socks , hair uncombed, hygiene adequate. Speech: Is fluent and spontaneous Language skills are intact Thought processes including: goal directed and logical Thought content: VA benefits, anxiety, feeling paranoid with certain people. Abstract reasoning, and computation: fair Description of associations: good Description of abnormal or psychotic thoughts: pt states he feels people are withholding information from him or lying to him. He says that 1 woman has been playing with his emotions. He describes the overdose as a "misunderstanding". He denies hearing voices or noises inside his head. He denies visual disturbances. He denies plan or intent to kill himself or harm anyone else. Judgment: poor Insight: fair Orientation: oriented to time, place, person and situation. Recent and remote memory: good Attention span and concentration: minimal Fund of knowledge: fair Mood: anxious. Affect: congruent DIAGNOSES: 1. Generalized anxiety disorder 2. nicotine dependence 3. alcohol abuse 4. cannabis abuse ASSESSMENT:Pt has not followed through on discharge plans from admission last month. 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 He is looking into it. Pt says he did not follow through on job with [email or web address] as he needs to verify employment with 2 places in [place]. [employer] was able to provide him with the contact information that he needed so he has this. Pt has medicaid now who can transport him to medical appts and he agrees to being re-connected with [facility] for med mgt and therapy until the VA takes over. He is quite certain he will have VA benefits. He is thinking of taking a job at [employer] where his friend is the health information manager. He is planning on receiving VA back pay and with that he could get a place to live and with the job he would have some steady income. He seems to get into trouble with the niece of the lady he lives with now and the niece's friend each time prior to admission. It is this friend that he has feeling for and says she messes with his feelings. He took the overdose in front of the niece as he was angry with her. She called the police. Pt denies use of cannabis since discharge from the hospital 01/28/17. He claims to only drink 2 beers on 2 occasions since leaving. Pt discussed coming to the ed for anxiety meds. He was taking vistaril and trazodone more than prescribed. It was explained to him that on his appt with [facility] he could have received medication adjustment. Also encouraged pt to be forthcoming with med needs while he is here so needs are addressed adequately prior to discharge. Seth agrees to do so. Pt reported gI disgress when changed from Cymbalta to sertraline. He has adjusted to the sertraline now. MANAGEMENT PLAN: maintain sertraline. begin vistaril q 4 hours prn for anxiety, increase trazodone to 100 mg at hs per his request/evaluate for effectiveness. TIME SPENT: 35 minutes. Vital Signs Vital Signs Date Time Temp Pulse Resp B/P (MAP) Pulse Ox O2 Delivery O2 Flow Rate FiO2 02/01/17 06:40 98.9 58 18 105/54 (71) 01/31/17 01:45 Room Air 01/31/17 00:50 96 Laboratory Data 24H Labs Laboratory Tests 2 02/01/17 06:50: Total Creatine Kinase 466H Current Medications Current Medications Acetaminophen (Tylenol Tab) 650 mg Q6HP PRN PO HEADACHE or DISCOMFORT; Start at 02:15; Stop 03/02/17 at 02:14 Al Hydrox/Mg Hydrox/Simethicone (Mylanta) 30 ml Q4HP PRN PO HEARTBURN/ INDIGESTION; Start 01/31/17 at 02:15; Stop 03/02/17 at 02:14 Home Med (Med Rec Complete!) ASDIRECTED XX ; Start 01/31/17 at 01:15; Stop at 01:18; Status DC Hydroxyzine HCl (Atarax) 50 mg Q6HP PRN PO ANXIETY Last administered on t 11:42; Start 01/31/17 at 22:00; Stop 03/02/17 at 21:59 Influenza Virus Vaccine (Fluzone Quadrivalent Pf Vaccine) 0.5 ml 1T@0900 IM ; Start 02/02/17 at 09:00; Stop 02/02/17 at 23:59 Magnesium Hydroxide (Milk Of Magnesia) 30 ml DAILYPRN PRN PO CONSTIPATION; Start 01/31/17 at 02:15; Stop 03/02/17 at 02:14 Nicotine (Nicorette) 2 mg Q2HP PRN PO SMOKING CESSATION Last administered on 11:42; Start 01/31/17 at 02:15; Stop 03/02/17 at 02:14 Sertraline HCl (Zoloft) 50 mg DAILY PO Last administered on 02/01/17 08:44; Start 01/31/17 at 09:00; Stop 03/02/17 at 08:59 Allergies Coded Allergies: No Known Allergies (Unverified , 01/18/17) Sandra Moralez February 01, 2017 12:53
[2017-02-01] MEDS: traZODone 100 MG TAB PO SCH ×2 (21:00→22:51)
[2017-02-02 06:35] VITALS: BP 112/55
[2017-02-02] MEDS: SERTRALINE HCL 50 MG TAB PO SCH (08:07)
[2017-02-02] MEDS ORDERED: INFLUENZA QUADRIVALENT PF VACCINE 0.5ML SYRINGE/VIAL (90686) IM SCH (09:00)
[2017-02-02] MEDS: NICOTINE POLACRILEX 2 MG GUM PO PRN ×2 (12:43→15:51)
--- NOTE | 2017-02-02 12:53 | IPNPDOC ---
[facility] Progress Note Progress Note DATE OF SERVICE: 02/02/17 HISTORY: Day 3 of admission VITAL SIGNS: See below. NEW TEST RESULTS: -sphyllis CURRENT MEDICATIONS: See below. MENTAL STATUS EXAMINATION: Patient is a 21 -year old male, who is wearing hospital garb, uncombed hair, good eye contact and cooperative. Speech: Is spontaneous Language skills are good Thought processes including: linear and goal directed Thought content: requesting discharge. Abstract reasoning, and computation: fair Description of associations: good Description of abnormal or psychotic thoughts: denies suicidal and homicidal thoughts, denies psychotic symptoms and none illicited Judgment: poor Insight: poor. Orientation: oriented to time, place, person and situation Recent and remote memory: intact Attention span and concentration: poor Fund of knowledge: adequate Mood: depressed. Affect: congruent DIAGNOSES: 1. . 2. . 3. . ASSESSMENT:Pt is lethargic and unmotivated. Needs frequent prompting to get out of bed and participate in programming. Wants to sleep his time away here. He said he intends to "sleep away the weekend". Reminded pt that he is here to learn healthy coping skills and alternative ways to resolve his differences with others as his methods are unhealthy and unhelpful. He is agreement but shows little interest. He is adhering to meds as order and following unit rules. MANAGEMENT PLAN: continue meds, encourage substance abuse tx, enc employment, plans to return to original living situation with ex-gf mother. chlamydia and gonorrhea urine screen ordered. TIME SPENT: 30 minutes. Vital Signs Vital Signs Date Time Temp Pulse Resp B/P (MAP) Pulse Ox O2 Delivery O2 Flow Rate FiO2 02/02/17 06:35 98.1 50 16 112/55 (74) 01/31/17 01:45 Room Air 01/31/17 00:50 96 Laboratory Data 24H Labs Laboratory Tests 2 02/02/17 12:29: Current Medications Current Medications Acetaminophen (Tylenol Tab) 650 mg Q6HP PRN PO HEADACHE or DISCOMFORT; Start at 02:15; Stop 03/02/17 at 02:14 Al Hydrox/Mg Hydrox/Simethicone (Mylanta) 30 ml Q4HP PRN PO HEARTBURN/ INDIGESTION; Start 01/31/17 at 02:15; Stop 03/02/17 at 02:14 Home Med (Med Rec Complete!) ASDIRECTED XX ; Start 01/31/17 at 01:15; Stop at 01:18; Status DC Hydroxyzine HCl (Atarax) 50 mg Q6HP PRN PO ANXIETY Last administered on 11:42; Start 01/31/17 at 22:00; Stop 03/02/17 at 21:59 Influenza Virus Vaccine (Fluzone Quadrivalent Pf Vaccine) 0.5 ml 1T@0900 IM Last administered on 02/02/17 08:08; Start 02/02/17 at 09:00; Stop 02/02/17 at 23: 59 Magnesium Hydroxide (Milk Of Magnesia) 30 ml DAILYPRN PRN PO CONSTIPATION; Start 01/31/17 at 02:15; Stop 03/02/17 at 02:14 Nicotine (Nicorette) 2 mg Q2HP PRN PO SMOKING CESSATION Last administered on 12:43; Start 01/31/17 at 02:15; Stop 03/02/17 at 02:14 Sertraline HCl (Zoloft) 50 mg DAILY PO Last administered on 02/02/17 08:07; Start 01/31/17 at 09:00; Stop 03/02/17 at 08:59 Trazodone HCl (Desyrel) 100 mg QHS PO Last administered on 02/01/17 22:51; Start 02/01/17 at 21:00; Stop 03/03/17 at 20:59 Allergies Coded Allergies: No Known Allergies (Unverified , 01/18/17) Sandra Moralez February 02, 2017 12:53
[2017-02-02] MEDS: hydrOXYzine 50 MG TAB PO PRN (15:51)
[2017-02-02 18:00] VITALS: BP 119/62
[2017-02-02] MEDS ORDERED: AZITHROMYCIN 250 MG TAB PO ONE (20:00)
[2017-02-02] MEDS: traZODone 100 MG TAB PO SCH (20:59)
[2017-02-03 06:52] VITALS: BP 104/55
[2017-02-03] MEDS: SERTRALINE HCL 50 MG TAB PO SCH (08:42)
[2017-02-03] MEDS: hydrOXYzine 50 MG TAB PO PRN ×2 (10:32→17:41)
[2017-02-03] MEDS: NICOTINE POLACRILEX 2 MG GUM PO PRN ×3 (10:34→19:49)
[2017-02-03 18:00] VITALS: BP 119/60
--- NOTE | 2017-02-03 19:15 | IPN ---
DATE: 02/03/2017 CHIEF COMPLAINT: Feels somewhat irritated. SUBJECTIVE: Seen for followup. Indicates feels irritated essentially being here. Says sleep is fair. Is concerned about dryness of skin that he says he has around his genitals. (I understand from the nurse there is a discharge as well, and the patient has been concerned about sexually transmitted disease. He has been positive for Chlamydia trachomatis.) Says appetite is fair. MENTAL STATUS EXAMINATION: Neat, cooperative, coherent. Appears mildly irritable. No evidence of any thoughts of harming himself or anyone else. At present denies any suicidal thoughts or intents. No evidence of any psychosis at present either. Cognition grossly intact. Judgment and insight are questionable, though possibly improved. ASSESSMENT: 1. Consider substance-induced mood disorder. 2. Rule out major depressive disorder. 3. Alcohol use disorder. 4. Cannabis use disorder. PLAN: Continue current care, observations, and medication regimen. He is to be encouraged to participate in activities in the unit. Further recommendations will be made depending on the clinical picture. VITAL SIGNS: Blood pressure 104/55, pulse 55, temperature 98.6.
[2017-02-03 20:35] VITALS: BP 119/60
[2017-02-03] MEDS: traZODone 100 MG TAB PO SCH (21:40)
[2017-02-04 06:25] VITALS: BP 105/55
[2017-02-04] MEDS: SERTRALINE HCL 50 MG TAB PO SCH (08:40)
[2017-02-04] MEDS: NICOTINE POLACRILEX 2 MG GUM PO PRN ×3 (09:03→18:25)
[2017-02-04] MEDS: hydrOXYzine 50 MG TAB PO PRN ×2 (13:49→19:50)
[2017-02-04] MEDS ORDERED: AZITHROMYCIN 250 MG TAB PO ONE (16:00)
[2017-02-04 18:00] VITALS: BP 120/70
[2017-02-04] MEDS ORDERED: traZODone 100 MG TAB PO SCH (21:00)
--- NOTE | 2017-02-04 21:11 | IPN ---
DATE: 02/03/2017 CHIEF COMPLAINT: Says feels okay. SUBJECTIVE: Is seen for followup in the presence of staff. Says had a reasonable night of sleep. Says that he had nightmares. Mood is fair, somewhat less depressed. MENTAL STATUS EXAMINATION: Neat and cooperative. He is neater than yesterday. He is coherent. Affect is restricted but reactive. Denies any thoughts of harming himself or anyone else at present. Currently there is no evidence of psychosis. Cognition is grossly intact. Judgment and insight remain questionable, though possibly improved overall. ASSESSMENT: 1. Substance induced mood disorder. 2. Rule out major depressive disorder. 3. Alcohol use disorder. 4. Cannabis use disorder. PLAN: He is to continue current care and observations. He will be treated for chlamydia, which has been shown to be positive. He is made aware of this. Further recommendations will be made depending on the clinical picture. He is to continue with Zoloft 50 mg daily, trazodone 100 mg at night as needed for insomnia. VITAL SIGNS: Blood pressure 105/55, pulse 69, temperature 97.7. He will be seeing the physician's claims assistant tomorrow as well for followup regarding the chlamydia. We will treat the chlamydia with azithromycin 1 mg one time dose. He will then be followed up with the physician claims assistant tomorrow. edited: 02/04/2017 [id number] CD BRENDA
--- NOTE | 2017-02-04 21:13 | IPN ---
DATE: 02/04/2017 I had ordered azithromycin 1 gram today, but I understand he received a gram a couple of days ago, so today's order is discontinued. The nurse practitioner has been informed a couple of days ago regarding the chlamydia.
[2017-02-05 07:00] VITALS: BP 95/53
[2017-02-05] MEDS: SERTRALINE HCL 50 MG TAB PO SCH (08:49)
[2017-02-05] MEDS: NICOTINE POLACRILEX 2 MG GUM PO PRN ×2 (08:50→14:44)
--- NOTE | 2017-02-05 09:48 | IPNPDOC ---
Subjective Date Seen The patient was seen on 02/05/17. Subjective Chief Complaint/HPI The patient is a 21-year-old male admitted with a reason for visit of Unspecified Depressive Disorder. Events since last encounter I am requested to reevaluate this patient in regards to his STI testing. ENT: Denies: Head Aches, Ear Pain, Dysphagia Pulmonary: Denies: Dyspnea, Cough Cardiovascular: Denies: Chest Pain, Palpitations, Orthopnea, Paroxysmal Noc. Dyspnea, Lt Headedness Genitourinary: Denies: Dysuria, Frequency, Incontinence, Retention Objective Physical Examination General Exam: Positive: Alert Eye Exam: Positive: PERRLA ENT Exam: Positive: Atraumatic Chest Exam: Positive: Clear to auscultation Heart Exam: Positive: Rate Normal, Regular Rhythm, Normal S1, Normal S2, Negative: Murmurs, Rubs Skin Exam: Positive: Nl turgor and temperature Assessment /Plan Problems (1) Chlamydia Problem Text: * Syphilis serology nonreactive. * Gonorrhea negative. * HIV/hepatitis screening negative 01/19/17 * Chlamydia noted to be positive 02/02/17. Patient was treated with 1 g Zithromax by mouth 1 02/04/17. * outpt F/U with PCP. Plan/VTE VTE Prophylaxis Ordered?: No (ambulatory) VS, I&O, 24H, Fishbone Vital Signs/I&O Vital Signs Date Time Temp Pulse Resp B/P (MAP) Pulse Ox O2 Delivery O2 Flow Rate FiO2 02/05/17 07:00 98.4 64 16 95/53 (67) 02/03/17 20:35 96 Room Air Zeina Bernal February 05, 2017 09:48
[2017-02-05] MEDS: hydrOXYzine 50 MG TAB PO PRN (10:45)
[2017-02-05] MEDS ORDERED: HYDRO50TAB PO (12:47)
[2017-02-05] MEDS ORDERED: SERT50TA PO (12:47)
--- NOTE | 2017-02-05 15:18 | MHDSPDOC ---
[facility] Discharge Summary Discharge Summary DATE OF ADMISSION: January 31, 2017 at 01:15 DATE OF DISCHARGE: February 05, 2017 DISCHARGE DIAGNOSES: 1. substance induced mood disorder 2. r/o MDD 3. Cannabis abuse REASON FOR ADMISSION: Mr. Fulton took an overdose of trazodone in the presence of the person he was arguing with. That person notified police and he was brought to the hospital. Charcol was administered to prevent complete absorption of the medication. Pt was admitted to [facility]. He had been discharged one week prior. CONSULTANTS INVOLVED:Medicine - pt had STD that needed treatment. TREATMENT AND PROGRESS ON THE UNIT : Pt was directed to participate in groups and pay attention to skills that would increase his ability to handle conflict and disappointment better. Pt was reluctant to do as instructed and needed to be redirected again to participate in groups. He did begin to follow instructions. He got along well with peers. He was visible in groups and at community gatherings. HOSPITAL COURSE: Pt was prescribed sertraline for depression and took the medication as ordered. He was told not to stop the medication abruptly as it would need a taper. he was advised to remain on the medication for a year or so to ensure good response. His outpatient treatment team may adjust the medication or start him on something new all together. Pt used trazodone prn for sleep on the unit. He will not have this prescribed at discharge due to his overdose. Pt was assisted in filing out an online request to obtain his DD2-14. He had follow up appts scheduled with [facility] and his PCP doctor for his STD. Pt was encouraged to continue his job search and to get serious about finding employment. It was suggested to re-evaluate the people he is spending time with as he blames others and their behavior for his last 2 admissions to this facility. He was offered substance abuse treatment but he declined stating it was not necessary. He denies he is dependent on alcohol or cannabis. He does not believe he abuses either drug. DISCHARGE ASSESSMENT: The patient has little motivation. If left to his own devices he would sleep all day. He wanted to leave today "because it is my homeboy's birthday". He became testy when his initial request for discharge was delayed as not all the services we could provide him with were completed yet. He insisted things be done today as "you have no right to hold me here". He denies being suicidal now. He denies being suicidal prior to the admission but his behavior is contrary to what he states. It is strongly encouraged that he continue treatment for his mood disorder as an outpatient and that he refrain from using any substances like alcohol or cannabis. MENTAL STATUS EXAMINATION ON DISCHARGE: Patient is a 21 year old male, who is casually attired in hospital attire, hygiene is good, eye contact is good, he is alert and oriented. Speech is spontaneous Language skills are intact Thought processes including: goal directed Thought content: discharge, friend's birthday Abstract reasoning, and computation: good Description of associations: good Description of abnormal or psychotic thoughts: no psychotic symptoms illicited. Judgment: fair Insight: poor Orientation to person, place, time and situation Recent and remote memory: intact Attention span and concentration: limited/varies Fund of knowledge: adequate Mood: "good, let me out of here". Affect: congruent MEDICATIONS ON DISCHARGE: - sertraline for depression. - for . - for . PLAN/FOLLOWUP ARRANGEMENTS: FU with [facility] for outpatient Mental health services, fu with PCP for medical care and to be sure STD is gone. The amount of time spent in the coordination of care for this patient was approximately 30 minutes. Vital Signs/I&Os Vital Signs Date Time Temp Pulse Resp B/P (MAP) Pulse Ox O2 Delivery O2 Flow Rate FiO2 02/05/17 07:00 98.4 64 16 95/53 (67) 02/03/17 20:35 96 Room Air Medications Scheduled Sertraline Hcl (Sertraline HCl) 50 Mg Tab, 50 MG PO DAILY, (Reported) Sertraline Hcl (Sertraline HCl) 50 Mg Tab, 50 MG PO DAILY for MOOD for 7 Days, # 7 Scheduled PRN Hydroxyzine HCl (Hydroxyzine HCl) 50 Mg Tab, 50 MG PO Q8HP PRN for ANXIETY for 7 Days, #21 Hydroxyzine Pamoate (Vistaril) 50 Mg Cap, 50 MG PO Q8H PRN for ANXIETY, ( Reported) Allergies Coded Allergies: No Known Allergies (Unverified , 01/18/17) Sandra Moralez February 05, 2017 15:18
== END 2017-02-05 15:10 | disposition home or self-care (01) | DRG 776 ==
LOC: M ED 17:41 → M ED INP 01-31 01:15 → M PSY 01-31 01:15
PROVIDERS: ADMIT Psychiatry & Neurology Psychiatry; ATTEND Psychiatry & Neurology Child & Adolescent Psychiatry
DX: F19.94 Other psychoactive substance use, unspecified with psychoactive substance-induced mood disorder (principal); F32.9 Major depressive disorder, single episode, unspecified; F12.10 Cannabis abuse, uncomplicated; F17.210 Nicotine dependence, cigarettes, uncomplicated; Z79.899 Other long term (current) drug therapy; A74.89 Other chlamydial diseases